=== PATIENT | female | born 1940 | race Caucasian/White ===

== ENCOUNTER 2024-06-15 12:53 | Emergency (ER) | payer BC, MEDICARE ==
[~2024-06-15] VITALS: Ht 172.7 cm; Wt 72.6 kg
[2024-06-15] MEDS ORDERED: LIDOCAINE HCL 2% 20 ML VIAL ONE (13:53)
[2024-06-15] MEDS: LIDOCAINE HCL 2% 20 ML VIAL TP ONE (14:21)
[2024-06-15] MEDS ORDERED: CEFD300C3 PO (14:52)
[2024-06-15] MEDS ORDERED: CEFDINIR 300 MG CAPSULE ONE (15:08)
[2024-06-15] MEDS: CEFDINIR 300 MG CAPSULE PO ONE (15:09)
[2024-06-15 15:22] VITALS: BP 144/87; O2SAT 97
== END 2024-06-15 15:23 | disposition home or self-care (01) ==
LOC: ER 12:53
DX: S81.012A Laceration without foreign body, left knee, initial encounter (principal); E03.9 Hypothyroidism, unspecified; Z88.0 Allergy status to penicillin; Z91.012 Allergy to eggs; W01.0XXA Fall on same level from slipping, tripping and stumbling without subsequent striking against object, initial encounter; Y93.89 Activity, other specified; Y92.89 Other specified places as the place of occurrence of the external cause; Y99.8 Other external cause status
CPT/HCPCS: 12005; 99283; J3490; A4606; A4663